=== PATIENT | female | born 1955 | race Caucasian/White ===

== ENCOUNTER 2017-08-28 14:01 | Emergency (ER) | payer BC ==
[2017-08-28 15:08] VITALS: BP 118/67
--- NOTE | 2017-08-28 15:18 | UC ---
Pediatric Resp HPI - HPI Summary HPI Summary: mother states patient has been coughing "like a bark" since yesterday, had runny nose and fever for several days. Denies vomiting/diarrhea, but apetite is somewhat decreased, patient has been receiving pedialyte by mom. Otherwise, patient is active and happy. Mom states patient has history of bronchiolytis several times in the past - History Of Current Complaint Chief Complaint: UCGI Stated Complaint: PERSONAL,URINARY Time Seen by Provider: 08/28/17 15:12 Hx Obtained From: Family/Manufacturing Maintenance Technician Onset/Duration: Gradual Onset, Lasting Days Timing: Constant Severity Currently: Moderate Location: Chest Character: Dry Cough, Barking Aggravating Factor(s): URI Associated Signs And Symptoms: Nasal Congestion, Fever - Risk Factor(s) Status Asthmaticus Risk Factor(s): Negative Severe RSV Risk Factor(s): Negative Foreign Body Aspiration Risk Factor(s): Negative - Allergies/Home Medications Allergies/Adverse Reactions: Allergies Allergy/AdvReac Type Severity Reaction Status Date / Time Penicillins Allergy Hives Verified 08/28/17 15:10 Home Medications: Home Medications Calcium Phosphate Trib/Vit D3 [Marylou Calcium + Vi... 250-135-200 mg-mg-Unit] 1 chw PO DAILY 08/28/17 [History Confirmed 08/28/17] Levothyroxine TAB* [Synthroid TAB*] 112 mcg PO 0800 08/28/17 [History Confirmed 08/28/17] Past Medical History Previously Healthy: Yes History: Normal ENT History: Yes: Otitis Media Respiratory History: No: Asthma Chronic Illness History: No: Diabetes - Surgical History Surgical History: Yes: Ear Tubes - Family History Family History of Asthma: No Family History Of Seizure: No - Social History Maternal Substance Use: No Hx Smoking Exposure: No Review Of Systems Constitutional: Fever Respiratory: Cough All Other Systems Reviewed And Are Negative: Yes Physical Exam Triage Information Reviewed: Yes Vital Signs: Initial Vital Signs Temp 99.4 F 08/28/17 14:58 Pulse 86 08/28/17 14:58 Resp 16 08/28/17 14:58 BP 118/67 08/28/17 14:58 Pulse Ox 100 08/28/17 14:58 Vital Signs Reviewed: Yes Appearance: Well-Appearing Eyes: Positive: Conjunctiva Clear ENT: Positive: Hearing grossly normal, Pharynx normal, TMs normal - tubes in place b/l Neck: Positive: Supple, Nontender, No Lymphadenopathy Respiratory: Positive: Chest non-tender, Lungs clear, No respiratory distress, Rhonchi - diffuse b/b Cardiovascular: Positive: Normal, RRR, No Murmur Abdomen Description: Positive: Nontender, No Organomegaly, Soft Pediatric Resp Course/Dx - Course Course Of Treatment: diagnosis of croup, start pedialyte daily for 5 days, oral hydration, NS nasal toileting, f/u with PCP in 1 week - Differential Dx/Diagnosis Provider Diagnoses: Croup Discharge - Sign-Out/Discharge Documenting (check all that apply): Discharge/Admit/Transfer - Discharge Plan Condition: Stable Disposition: HOME Referrals: Alexandra Hitchcock MD [Primary Care Provider] - - Billing Disposition and Condition Condition: STABLE Disposition: HOME
[2017-08-28] MEDS ORDERED: Nitrofurantoin Macrocrystals* 50 MG CAP PO ONE (15:30)
[2017-08-28] MEDS ORDERED: Ibuprofen TAB* 600 MG PO ONE (15:31)
== END 2017-08-28 15:55 | disposition home or self-care (01) ==
LOC: UCCORT 14:01
DX: J05.0 Acute obstructive laryngitis [croup] (principal); Z88.0 Allergy status to penicillin
CPT/HCPCS: 81003; 87077; 87086; 87186; 99212; A9270-GY; G0463